=== PATIENT | female | born 1960 | race Caucasian/White ===

== ENCOUNTER → 2016-10-09 | Outpatient (CLI) | payer MEDICAID ==
--- NOTE | ~2016-10-09 | MY11 ---
[facility] A Service of [facility] RADIOLOGY TEXT RESULTS PATIENT: ROSANNA PERSAUD LOCATION: [facility] : 62 UNIT #: [id number] AGE: [address]: Leonela Conte MD SEX: F ORDER DR: [id number] [facility] [address] [place], [place] [address] [id number] O MR#: [id number] Acc #: [id number] NAME: ROSANNA PERSAUD : 1960 SEX: F STUDY DATE/TIME: 10/09/2016 10:13 UNIT: [facility] ROOM: STUDY DESCRIPTION: MY Mammogram Screening Dig Chris Attending Physician: Leonela Conte M.D. Referring Physician: Leonela Conte M.D. Ordering Physician: Leonela Conte M.D. Primary Care Physician: Leonela Conte M.D. MEDICAL IMAGING REPORT This report is preliminary unless electronic signature is present EXAM Bilateral digital screening mammogram with CAD device 10/09/2016 HISTORY Baseline mammogram. FINDINGS Bilateral digital screening mammogram was performed in craniocaudal and mediolateral oblique projections demonstrating minimal fibroglandular tissue. In the upper outer quadrant of the left breast there is a 1 cm nodular asymmetry with no prior mammogram for comparison. Recommend spot compression for further evaluation. If the finding persists following spot compression recommend ultrasound for characterization. No suspicious cluster of microcalcifications was seen. The films have been reviewed by an FDA-approved CAD device. IMPRESSION 1-cm nodular asymmetry in the upper outer quadrant of the left breast with no prior mammogram for comparison. Recommend spot compression for further evaluation. If the finding persists following spot compression recommend ultrasound for characterization. Patients over the age of 40 are entered into a reminder system with target due date for the next mammogram. A result letter will also be sent to the patient. BIRADS: 0 - Incomplete: Needs additional imaging evaluation and/or prior mammograms for comparison. Dictated by... Enrique Granados M.D. [facility] A Service of [facility] RADIOLOGY TEXT RESULTS PATIENT: ROSANNA PERSAUD [id number] 62 UNIT #: [id number] AGE: [address]: Leonela Conte MD SEX: F ORDER DR: THIS IS AN ELECTRONICALLY VERIFIED REPORT Enrique Granados M.D. at 10/10/2016 8:28 AM YASIR/nilda TD: 10/09/2016 12:56 JOB #: [id number] MEDICAL IMAGING REPORT Page 1 of 1 COPY
== END | disposition home or self-care (01) ==
LOC: CWCC 09:44
DX: Z12.31 Encounter for screening mammogram for malignant neoplasm of breast (principal); N63 Unspecified lump in breast
CPT/HCPCS: G0202

== ENCOUNTER → 2016-10-26 | Outpatient (CLI) | payer MEDICAID ==
--- NOTE | ~2016-10-26 | US24 ---
[facility] A Service of [facility] RADIOLOGY TEXT RESULTS PATIENT: ROSANNA PERSAUD LOCATION: [facility] : 62 UNIT #: [id number] AGE: [address]: Leonela Conte MD SEX: F ORDER DR: [id number] [facility] [address] [place], [place] [address] [id number] O MR#: [id number] Acc #: [id number] NAME: ROSANNA PERSAUD : 1960 SEX: F STUDY DATE/TIME: 10/26/2016 12:52 UNIT: [facility] ROOM: STUDY DESCRIPTION: US Breast Unilateral Attending Physician: Leonela Conte M.D. Ordering Physician: Leonela Conte M.D. Primary Care Physician: Leonela Conte M.D. MEDICAL IMAGING REPORT This report is preliminary unless electronic signature is present EXAM Left breast ultrasound, 10/26 INDICATION Abnormal mammogram showing a nodule in the upper outer quadrant of the left breast. FINDINGS For a full report, please see the mammogram report dated 10/26/2016. Patients over the age of 40 are entered into a reminder system with target due date for the next mammogram. A result letter will also be sent to the patient. BIRADS: 2 Benign Finding Dictated by... Zana Garcia Jr., M.D. THIS IS AN ELECTRONICALLY VERIFIED REPORT Zana Garcia Jr., M.D. at 10/26/2016 4:48 PM HOWARD/january TD: 10/26/2016 13:58 JOB #: [id number] MEDICAL IMAGING REPORT Page 1 of 1 COPY
--- NOTE | ~2016-10-26 | MY7 ---
[facility] A Service of [facility] RADIOLOGY TEXT RESULTS PATIENT: ROSANNA PERSAUD LOCATION: [facility] : 62 UNIT #: [id number] AGE: [address]: Leonela Conte MD SEX: F ORDER DR: [id number] [facility] [address] [place], [place] [address] [id number] O MR#: [id number] Acc #: [id number] NAME: ROSANNA PERSAUD : 1960 SEX: F STUDY DATE/TIME: 10/26/2016 12:33 UNIT: [facility] ROOM: STUDY DESCRIPTION: MY Mammogram Dx Dig Lt Attending Physician: Leonela Conte M.D. Ordering Physician: Leonela Conte M.D. Primary Care Physician: Leonela Conte M.D. MEDICAL IMAGING REPORT This report is preliminary unless electronic signature is present EXAM Diagnostic left mammogram 10/26/2016 INDICATION Abnormal baseline screening exam showing a nodule in the upper outer left breast. FINDINGS Spot compression CC and MLO views were obtained in addition to a standard true lateral view. Study is reviewed with an FDA-approved CAD device. Comparison is made with 10/09/2016. Additional imaging today confirms the presence of a somewhat poorly defined nodule in the upper outer left breast measuring about 12 mm in greatest mammographic dimension. No associated microcalcifications. Ultrasound was performed. Ultrasound demonstrates a simple cyst at the 2 o'clock position measuring up to about 9 mm in greatest dimension. I believe this does correspond to the mammographic finding. There is some duct ectasia on the left side as well. No solid mass by ultrasound. Findings were discussed with the patient at the time of her exam today. IMPRESSION Mammographic abnormality corresponds to a simple cyst by ultrasound. Routine yearly mammographic screening recommended. BIRADS: 2 Benign finding Dictated by... Zana Garcia Jr., M.D. THIS IS AN ELECTRONICALLY VERIFIED REPORT [facility] A Service of [facility] RADIOLOGY TEXT RESULTS PATIENT: ROSANNA PERSAUD LOCATION: [facility] : 62 UNIT #: [id number] AGE: [address]: Leonela Conte MD SEX: F ORDER DR: Zana Garcia Jr., M.D. at 10/26/2016 4:48 PM HOWARD/danitza TD: 10/26/2016 14:00 JOB #: [id number] MEDICAL IMAGING REPORT Page 1 of 1 COPY
== END | disposition home or self-care (01) ==
LOC: CMAM 12:01
DX: R92.8 Other abnormal and inconclusive findings on diagnostic imaging of breast (principal); N60.02 Solitary cyst of left breast
CPT/HCPCS: 76641; G0206